=== PATIENT | female | born 1960 | race American Indian/Alaskan Native ===

== ENCOUNTER 2016-10-20 10:59 | Emergency (ER) | payer MEDICARE, OTHER ==
--- NOTE | 2016-10-20 13:57 | Emergency Department Report ---
- General Chief complaint: Skin/Abscess/Foreign Body Stated complaint: ABCESS LEFT ARM Time Seen by Provider: 10/20/16 13:00 Source: patient Mode of arrival: Ambulatory Limitations: No Limitations - History of Present Illness Initial comments: This 55-year-old female nontoxic, well nourished in appearance, no acute signs of distress presents to the ED complaining of boil to the left axilla. Patient denies any trauma to the region. Patient stated this started to develop 3 days ago but denies any pus or drainage. Denies fever, chills, stiff neck, headache , shortness of breath, abdominal pain, nausea vomiting. Patient states allergies to codeine and states that he'll history includes arthritis, GERD, and hypertension. MD complaint: abscess/boil -: Gradual, days(s) (3) Location: chest (left axilla region) Severity: mild Severity scale (0 -10): 6 Quality: aching Consistency: constant Improves with: none Worsens with: none Context: none Associated symptoms: denies other symptoms Treatments Prior to Arrival: none - Related Data Home Medications Medication Instructions Recorded Confirmed Last Taken Biotin [Biotin] 1 tab PO DAILY 01/27/13 08/15/13 08/15/13 Estrogens, Conjugated [Premarin] 1 tab PO DAILY 01/27/13 08/15/13 08/15/13 HYDROcodone/ACETAMINOPHEN 1 tab PO TID PRN 01/27/13 08/15/13 08/15/13 [Hydrocodon-Acetaminophn 10-325] Hydralazine HCl [Hydralazine HCl] 25 mg PO PRN PRN 01/27/13 08/15/13 08/15/13 Labetalol [Normodyne TAB] 400 mg PO BID 01/27/13 08/15/13 08/15/13 Pregabalin [Lyrica] 75 mg PO BID 01/27/13 08/15/13 08/15/13 Sertraline [Zoloft] 50 mg PO BID 01/27/13 08/15/13 08/15/13 Celecoxib [Celebrex] 200 mg PO DAILY 02/04/13 08/15/13 08/15/13 Telmisartan [Micardis] 20 mg PO DAILY 02/04/13 08/15/13 08/15/13 Previous Rx's Medication Instructions Recorded Last Taken Type HYDROcodone/APAP 10-325 [[place] 1 each PO Q6HR PRN #90 tablet 02/04/13 Unknown Rx 10/325] Oxycodone HCl/Acetaminophen 1 each PO Q8HR PRN #10 tablet 08/16/13 Unknown Rx [Percocet 10-325 mg] Sulfamethoxazole/Trimethoprim 1 each PO BID #14 tablet 10/20/16 Unknown Rx [Bactrim DS TAB] Allergies Allergy/AdvReac Type Severity Reaction Status Date / Time codeine Allergy Intermediate Hives,Hallu Verified 10/20/16 11:07 cinations Abscess Boil HPI - HPI Chief Complaint: Skin/Abscess/Foreign Body Stated Complaint: ABCESS LEFT ARM Time Seen by Provider: 10/20/16 13:00 Home Medications: Home Medications Medication Instructions Recorded Confirmed Last Taken Biotin [Biotin] 1 tab PO DAILY 01/27/13 08/15/13 08/15/13 Estrogens, Conjugated [Premarin] 1 tab PO DAILY 01/27/13 08/15/13 08/15/13 HYDROcodone/ACETAMINOPHEN 1 tab PO TID PRN 01/27/13 08/15/13 08/15/13 [Hydrocodon-Acetaminophn 10-325] Hydralazine HCl [Hydralazine HCl] 25 mg PO PRN PRN 01/27/13 08/15/13 08/15/13 Labetalol [Normodyne TAB] 400 mg PO BID 01/27/13 08/15/13 08/15/13 Pregabalin [Lyrica] 75 mg PO BID 01/27/13 08/15/13 08/15/13 Sertraline [Zoloft] 50 mg PO BID 01/27/13 08/15/13 08/15/13 Celecoxib [Celebrex] 200 mg PO DAILY 02/04/13 08/15/13 08/15/13 Telmisartan [Micardis] 20 mg PO DAILY 02/04/13 08/15/13 08/15/13 Previous Rx's Medication Instructions Recorded Last Taken Type HYDROcodone/APAP 10-325 [[place] 1 each PO Q6HR PRN #90 tablet 02/04/13 Unknown Rx 10/325] Oxycodone HCl/Acetaminophen 1 each PO Q8HR PRN #10 tablet 08/16/13 Unknown Rx [Percocet 10-325 mg] Sulfamethoxazole/Trimethoprim 1 each PO BID #14 tablet 10/20/16 Unknown Rx [Bactrim DS TAB] Allergies/Adverse Reactions: Allergies Allergy/AdvReac Type Severity Reaction Status Date / Time codeine Allergy Intermediate Jaylen Guerrero Verified 10/20/16 11:07 cinations ED Review of Systems ROS: Stated complaint: ABCESS LEFT ARM Other details as noted in HPI Constitutional: denies: chills, fever Eyes: denies: eye pain, eye discharge, vision change ENT: denies: ear pain, throat pain Respiratory: denies: cough, shortness of breath, wheezing Cardiovascular: denies: chest pain, palpitations Endocrine: no symptoms reported Gastrointestinal: denies: abdominal pain, nausea, diarrhea Genitourinary: denies: urgency, dysuria, discharge Musculoskeletal: denies: back pain, joint swelling, arthralgia Skin: denies: rash, lesions Neurological: denies: headache, weakness, paresthesias Psychiatric: denies: anxiety, depression Hematological/Lymphatic: denies: easy bleeding, easy bruising ED Past Medical Hx - Past Medical History Previous Medical History?: Yes Hx Hypertension: Yes Hx Heart Attack/AMI: No Hx GERD: Yes Hx Arthritis: Yes Hx Seizures: No Hx Asthma: No Additional medical history: Had back and neck surgery 2012. Two disc removed from neck per patient. - Surgical History Past Surgical History?: Yes Additional Surgical History: Had back and neck surgery 2012 - Social History Smoking Status: Never Smoker Substance Use Type: None - Medications Home Medications: Home Medications Medication Instructions Recorded Confirmed Last Taken Type Biotin [Biotin] 1 tab PO DAILY 01/27/13 08/15/13 08/15/13 History Estrogens, Conjugated [Premarin] 1 tab PO DAILY 01/27/13 08/15/13 08/15/13 History HYDROcodone/ACETAMINOPHEN 1 tab PO TID PRN 01/27/13 08/15/13 08/15/13 History [Hydrocodon-Acetaminophn 10-325] Hydralazine HCl [Hydralazine HCl] 25 mg PO PRN PRN 01/27/13 08/15/13 08/15/13 History Labetalol [Normodyne TAB] 400 mg PO BID 01/27/13 08/15/13 08/15/13 History Pregabalin [Lyrica] 75 mg PO BID 01/27/13 08/15/13 08/15/13 History Sertraline [Zoloft] 50 mg PO BID 01/27/13 08/15/13 08/15/13 History Celecoxib [Celebrex] 200 mg PO DAILY 02/04/13 08/15/13 08/15/13 History HYDROcodone/APAP 10-325 [[place] 1 each PO Q6HR PRN #90 tablet 02/04/13 08/15/13 Unknown Rx 10/325] Telmisartan [Micardis] 20 mg PO DAILY 02/04/13 08/15/13 08/15/13 History Oxycodone HCl/Acetaminophen 1 each PO Q8HR PRN #10 tablet 08/16/13 Unknown Rx [Percocet 10-325 mg] Sulfamethoxazole/Trimethoprim 1 each PO BID #14 tablet 10/20/16 Unknown Rx [Bactrim DS TAB] ED Physical Exam - General Limitations: No Limitations General appearance: alert, in no apparent distress - Head Head exam: Present: atraumatic, normocephalic, normal inspection - Eye Eye exam: Present: normal appearance, PERRL, EOMI. Absent: scleral icterus, conjunctival injection, nystagmus, periorbital swelling, periorbital tenderness Pupils: Present: normal accommodation - ENT ENT exam: Present: normal exam, normal orophraynx, mucous membranes moist, TM's normal bilaterally, normal external ear exam - Neck Neck exam: Present: normal inspection, full ROM. Absent: tenderness, meningismus, lymphadenopathy, thyromegaly - Respiratory Respiratory exam: Present: normal lung sounds bilaterally. Absent: respiratory distress, wheezes, rales, rhonchi, stridor, chest wall tenderness, accessory muscle use, decreased breath sounds, prolonged expiratory - Cardiovascular Cardiovascular Exam: Present: regular rate, normal rhythm, normal heart sounds. Absent: bradycardia, tachycardia, irregular rhythm, systolic murmur, diastolic murmur, rubs, gallop - GI/Abdominal GI/Abdominal exam: Present: soft, normal bowel sounds. Absent: distended, tenderness, rebound, rigid, diminished bowel sounds - Rectal Rectal exam: Present: deferred - Extremities Exam Extremities exam: Present: normal inspection, full ROM, normal capillary refill. Absent: tenderness, pedal edema, joint swelling, calf tenderness - Back Exam Back exam: Present: normal inspection, full ROM. Absent: tenderness, CVA tenderness (R), CVA tenderness (L), muscle spasm, paraspinal tenderness, vertebral tenderness, rash noted - Neurological Exam Neurological exam: Present: alert, oriented X3, CN II-XII intact, normal gait, reflexes normal - Psychiatric Psychiatric exam: Present: normal affect, normal mood - Skin Skin exam: Present: warm, dry, intact, normal color, other (0.5 centimeter nodular swelling to the left axilla. There is no obvious signs of any induration, or abscess. No fluctuance is present. Tender to touch. No surrounding cellulitis noted.). Absent: rash ED Course Vital Signs 10/20/16 11:10 Temperature 97.5 F L Pulse Rate 68 Blood Pressure 137/84 O2 Sat by Pulse 99 Oximetry - Reevaluation(s) Reevaluation #1: 10/20/16 13:59 Patient is speaking in full sentences with no signs of distress noted. ED Medical Decision Making - Medical Decision Making 55-year-old female that presents with boil to the left axilla. There is no obvious signs of abscess formation, induration or fluctuance. Patient be treated with Bactrim at discharge and was instructed to observe symptoms of increased swelling, pus, or drainage. And if the symptoms do develop patient may need a incision and drainage. Upon my examination there was no sinus symptoms of abscess formation but was slightly nodular. I instructed patient to observe the area of increased swelling and if positive this may be a sign of an abscess formation and to return to emergency room as soon as possible. At time time of discharge, the patient does not seem toxic or ill in appearance. No acute signs of distress noted. Patient agrees to discharge treatment plan of care. No further questions noted by the patient. Critical care attestation.: If time is entered above; I have spent that time in minutes in the direct care of this critically ill patient, excluding procedure time. ED Disposition Clinical Impression: Boil Disposition: DC-01 TO HOME OR SELFCARE Is pt being admited?: No Does the pt Need Aspirin: No Condition: Stable Instructions: Abscess (ED), Sulfamethoxazole/Trimethoprim (By mouth) Additional Instructions: Follow-up with a primary care doctor in 3-5 days. Observed symptoms as directed to you suggest swelling, increased redness, or any abnormal symptoms and return to emergency room for possible incision and drainage. Take full course of antibiotics that was prescribed. Prescriptions: Sulfamethoxazole/Trimethoprim [Bactrim DS TAB] 1 each PO BID #14 tablet Referrals: RICARDO NIÑO MD [Primary Care Provider] - 3-5 Days PRIMARY CARE, [Referring] - 3-5 Days [facility] [Outside] - 3-5 Days [facility] [Outside] - 3-5 Days Forms: Work/School Release Form(ED)
[2016-10-20 13:58] VITALS: BP 130/70
== END 2016-10-20 14:17 | disposition home or self-care (01) ==
LOC: ED 10:59
DX: L02.422 Furuncle of left axilla (principal); I10 Essential (primary) hypertension; K21.9 Gastro-esophageal reflux disease without esophagitis
CPT/HCPCS: 99282

== ENCOUNTER 2016-12-12 11:27 | Outpatient (CLI) | payer MEDICARE, OTHER ==
--- NOTE | 2016-12-12 13:10 | Mammography Report ---
BILATERAL MAMMOGRAM with CAD: HISTORY: Cancer screening. Comparison study is dated August 01, 2014. FINDINGS: The breast tissue is heterogeneously dense, which could obscure detection of small masses (approximately 50%-75% glandular). No mass, distortion, suspicious calcification, or skin change is seen. IMPRESSION: Negative mammogram. There is no mammographic evidence of malignancy. RECOMMENDATION: Follow-up per ACS guidelines. BI-RADS CATEGORY: 1 = Negative ACR BI-RADS MAMMOGRAPHIC CODES: 0 = Needs additional imaging evaluation; 1 = Negative; 2 = Benign; 3 = Probably benign; 4 = Suspicious; 5 = Malignant; 6 = Known biopsy-proven malignancy COMMENT: 1. Dense breast tissue, i.e., adenosis, fibrocystic changes, etc., may obscure an underlying neoplasm. 2. Approximately 10% of cancers are not detected with mammography. 3. A negative mammography report should not delay biopsy if a clinically suspicious mass is present. COMMENT: Patient follow-up letters are generated in [employer].
== END 2016-12-12 11:28 | disposition home or self-care (01) ==
LOC: SPVWC 11:27
PROVIDERS: ATTEND Physician Assistant
DX: Z12.31 Encounter for screening mammogram for malignant neoplasm of breast (principal)
CPT/HCPCS: 77067; G0202

== ENCOUNTER 2017-07-11 15:13 | Outpatient (CLI) | payer MEDICARE, OTHER ==
--- NOTE | 2017-07-16 14:42 | Ultrasound Report ---
ULTRASOUND CHEST: 07/11/17 15:30:00 CLINICAL: Midline chest wall mass. FINDINGS: Ultrasound of the anterior upper chest was performed and demonstrated no soft tissue mass. A tiny 3 mm cyst is identified at the level of the midsternum. I examined the patient and scanned the patient myself. She pointed to a nontender protuberance of the upper manubrium. I could palpate only a prominent upper manubrium and the ultrasound demonstrated nonspecific bone enlargement with no discrete mass of the bone or soft tissues. IMPRESSION: A palpable enlargement of the upper manubrium with no distinct mass identified by ultrasound. A benign 3 mm cyst in the soft tissues is an incidental finding which is not significant. Recommend CT Chest without contrast for a better evaluation of the manubrium and soft tissues.
== END 2017-07-11 15:14 | disposition home or self-care (01) ==
LOC: SPVWC 15:13
PROVIDERS: ATTEND Family Medicine Adult Medicine
DX: I51.7 Cardiomegaly (principal); R22.2 Localized swelling, mass and lump, trunk; I10 Essential (primary) hypertension; K21.9 Gastro-esophageal reflux disease without esophagitis
CPT/HCPCS: 76604

== ENCOUNTER 2018-08-27 10:11 | Outpatient (CLI) | payer MEDICARE, OTHER ==
--- NOTE | 2018-08-27 16:07 | Mammography Report ---
BILATERAL DIGITAL SCREENING MAMMOGRAM WITH CAD INDICATION: Routine screening mammography. TECHNIQUE: Digital bilateral 2D mammography was obtained in the craniocaudal and mediolateral obliq ue projections. This examination was interpreted with the benefit of Computer-Aided Detection analysi s. COMPARISON: 12/12/2016 FINDINGS: Breast Density: The breasts are heterogeneously dense, which may obscure small masses. There is no evidence of dominant mass, suspicious calcifications or architectural distortion in eith er breast. IMPRESSION:No mammographic evidence of malignancy. BI-RADS Category 2: Benign. No mammographic evidence of malignancy. Recommend routine screening ma mmography in one year. A "normal" or negative report should not discourage follow up or biopsy of a clinically significant f inding. A written summary of these findings will be mailed to the patient. The patient will be entered into a mammography reporting system which will generate a reminder letter for the patient's next appointmen t at the appropriate interval. The [employer] recommends yearly mammograms starting at age 40 and continuing as l juan as a woman is in good health. Breast MRI is recommended for women with an approximate 20-25% or greater lifetime risk of breast cancer, including women with a strong family history of breast or ova rima cancer or who have been treated for Hodgkin's disease. Signer Name: Ismael Alexander MD Signed: 08/27/2018 4:02 PM Workstation Name: [id number]
== END 2018-08-27 10:12 | disposition home or self-care (01) ==
LOC: MAMMO 10:11
PROVIDERS: ATTEND Family Medicine Adult Medicine
DX: Z12.31 Encounter for screening mammogram for malignant neoplasm of breast (principal); I10 Essential (primary) hypertension; K21.9 Gastro-esophageal reflux disease without esophagitis; Z90.89 Acquired absence of other organs; Z90.710 Acquired absence of both cervix and uterus
CPT/HCPCS: 77067

== ENCOUNTER 2019-12-24 13:00 | Outpatient (CLI) | payer MEDICARE, OTHER ==
--- NOTE | 2019-12-27 09:26 | Mammography Report ---
DIGITAL SCREENING MAMMOGRAM WITH CAD, 12/24/2019 INDICATION: Routine screening mammography. TECHNIQUE: Digital bilateral 2D mammography was obtained in the craniocaudal and mediolateral obliq ue projections. This examination was interpreted with the benefit of Computer-Aided Detection analysi s. COMPARISON: 08/27/2018. FINDINGS: Breast Density: The breasts are heterogeneously dense, which may obscure small masses. There is no evidence of dominant mass, suspicious calcifications or architectural distortion in eithe r breast. IMPRESSION: Follow up recommendation: Routine yearly BI-RADS Category 1: Negative. A "normal" or negative report should not discourage follow up or biopsy of a clinically significant f inding. A written summary of these findings will be mailed to the patient. The patient will be entered into a mammography reporting system which will generate a reminder letter for the patient's next appointmen t at the appropriate interval. The [employer] recommends yearly mammograms starting at age 40 and continuing as l juan as a woman is in good health. Breast MRI is recommended for women with an approximate 20-25% or greater lifetime risk of breast cancer, including women with a strong family history of breast or ova rima cancer or who have been treated for Hodgkin's disease. Signer Name: Baljit Morgan MD Signed: 12/27/2019 9:21 AM Workstation Name: [email or web address]
== END 2019-12-24 13:01 | disposition home or self-care (01) ==
LOC: MAMMO 13:00
PROVIDERS: ATTEND Family Medicine Adult Medicine
DX: Z12.31 Encounter for screening mammogram for malignant neoplasm of breast (principal)
CPT/HCPCS: 77067

== ENCOUNTER 2021-02-05 13:14 | Outpatient (CLI) | payer MEDICARE, OTHER ==
--- NOTE | 2021-02-06 14:07 | Mammography Report ---
DIGITAL SCREENING MAMMOGRAM WITH CAD, 02/05/2021 CLINICAL INFORMATION / INDICATION: Routine screening TECHNIQUE: Digital bilateral 2D mammography was obtained in the craniocaudal and mediolateral obliqu e projections. This examination was interpreted with the benefit of Computer-Aided Detection analysis . COMPARISON: 12/24/2019 FINDINGS: Breast Density: The breasts are heterogeneously dense, which may obscure small masses. No dominant mass, suspicious calcifications, or architectural distortion in either breast. IMPRESSION: No mammographic evidence of malignancy. Follow up recommendation: Routine yearly BI-RADS Category 1: NEGATIVE A "normal" or negative report should not discourage follow up or biopsy of a clinically significant f inding. A written summary of these findings will be mailed to the patient. The patient will be entered into a mammography reporting system which will generate a reminder letter for the patient's next appointmen t at the appropriate interval. The [employer] recommends yearly mammograms starting at age 40 and continuing as l juan as a woman is in good health. Breast MRI is recommended for women with an approximate 20-25% or greater lifetime risk of breast cancer, including women with a strong family history of breast or ova rima cancer or who have been treated for Hodgkin's disease. Signer Name: Byron Ruiz MD Signed: 02/06/2021 2:03 PM Workstation Name: [email or web address]
== END 2021-02-05 13:15 | disposition home or self-care (01) ==
LOC: MAMMO 13:14
PROVIDERS: ATTEND Physician Assistant
DX: Z12.31 Encounter for screening mammogram for malignant neoplasm of breast (principal)
CPT/HCPCS: 77067

== ENCOUNTER 2021-03-02 11:53 | Outpatient (CLI) | payer MEDICARE, OTHER ==
--- NOTE | 2021-03-02 14:23 | XRay Report ---
BILATERAL FEMURS 10 VIEWS BILATERAL HIPS 5 VIEWS INDICATION / CLINICAL INFORMATION: BILATERAL LEG PAIN COMPARISON: None available. FINDINGS: FEMURS: BONES and JOINT(S): No acute fracture or subluxation. No significant arthritis. SOFT TISSUES: No significant abnormality. ADDITIONAL FINDINGS: None. HIPS: BONES and JOINT(S): No acute fracture or subluxation. There is mild osteoarthritis of the hips. SOFT TISSUES: No significant abnormality. ADDITIONAL FINDINGS: None. IMPRESSION: 1. Mild osteoarthritis of the hips. 2. No significant abnormality of the femurs. Signer Name: Floyd Ruiz MD Signed: 03/02/2021 2:19 PM Workstation Name: [id number]
--- NOTE | 2021-03-02 14:25 | XRay Report ---
LUMBAR SPINE 3 VIEWS INDICATION: Bilateral leg pain. COMPARISON: No relevant prior imaging study available. FINDINGS: VERTEBRAE: No acute fracture. There is grade 1 anterolisthesis at L4-L5. DISC SPACES: Small osteophytes are seen at L2-L3, L3-L4 and L4-L5. There is mild disc space loss at L 4-L5. FACET JOINTS: Facet arthropathy is seen at L4-L5 and L5-S1. SOFT TISSUES: No significant abnormality. ADDITIONAL FINDINGS: No additional significant findings. IMPRESSION: Mild lumbar spondylosis with grade 1 anterolisthesis at L4-L5. Signer Name: Floyd Ruiz MD Signed: 03/02/2021 2:20 PM Workstation Name: [email or web address]
== END 2021-03-02 11:54 | disposition home or self-care (01) ==
LOC: XRAY 11:53
PROVIDERS: ATTEND Family Medicine Adult Medicine
DX: M16.0 Bilateral primary osteoarthritis of hip (principal); M47.816 Spondylosis without myelopathy or radiculopathy, lumbar region; M25.78 Osteophyte, vertebrae; M47.817 Spondylosis without myelopathy or radiculopathy, lumbosacral region
CPT/HCPCS: 72100; 73521